=== PATIENT | male | born 1980 | race American Indian/Alaskan Native ===

== ENCOUNTER 2019-07-26 17:45 | Emergency (ER) | payer MEDICAID, OTHER, SELFPAY ==
--- NOTE | 2019-07-26 17:44 | DI.RAD.S_ITS ---
PROCEDURE: XR HAND RT MIN 3V INDICATIONS: fish hook stuck in right metacarpal TECHNIQUE: 3 views of the hand(s) acquired. COMPARISON: None. FINDINGS: Bones: Postoperative change can be seen at the base of the 5th metacarpal. No fractures or dislocations. Carpal bones are normally aligned. No suspicious bony lesions. Soft tissues: There is a large fishhook seen, with the tip not seen within a bone, yet seen within the soft tissues between the 1st and 2nd metacarpals. IMPRESSION: The tip of the fishhook can be seen external to the bones, within the soft tissues between the 1st and 2nd metacarpal. Postoperative change at the base of the 5th metacarpal. Dictated by: Raymundo Pedroza M.D. on 07/26/2019 at 17:08 Approved by: Raymundo Pedroza M.D. on 07/26/2019 at 17:10
[2019-07-26 17:45] VITALS: PULSE 100; RESP 22; TEMP 36.9; O2SAT 100
[2019-07-26] MEDS: LIDO 1%/SOD BICARB 8.4% (10ML) 10 ML SYRINGE INJ (17:54)
--- NOTE | 2019-07-26 18:08 | ED_ITS ---
HPI - Extremity Injury (Upper) <KRAIG Berrios - Last Filed: 07/26/19 19:48> General Chief Complaint: Trauma Stated Complaint: Fishing hook in hand Time Seen by Provider: 07/26/19 18:43 Source: EMS Mode of arrival: EMS Limitations: no limitations History of Present Illness HPI narrative: This is a 38-year-old male, smoker, who presents to ED with EMS after a fish hook got stuck in his dominant hand, right hand, in the palm of 1st and 2nd metacarpal region. 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 Patient reports discomfort with movement and he is holding the fishhook to prevent movement without other hand. Unsure of last tetanus immunization. Patient reports he is able to move his fingers and has good sensation around the injury site. Patient chronic medical conditions and denies diabetes. Related Data Previous Rx's Medication Instructions Recorded doxycycline hyclate 100 mg PO BID 10 Days #19 tab 07/26/19 Allergies Allergy/AdvReac Type Severity Reaction Status Date / Time No Known Drug Allergies Allergy Verified 07/26/19 17:50 Review of Systems <KRAIG Berrios - Last Filed: 07/26/19 19:48> Review of Systems Narrative: General: Denies fever, chills, fatigue, malaise, sweats. HEENT: Denies sinus pain, ear pain, sore throat, difficulty swallowing, dizziness. Respiratory: Denies dyspnea, cough, wheezing, hemoptysis, sputum. Cardiovascular: Denies chest pain, palpitations, orthopnea, edema. Gastrointestinal: Denies nausea, vomiting, abdominal pain, diarrhea, constipation, melena. : Denies dysuria, frequency, incontinence, hematuria, urinary retention. Musculoskeletal: Denies weakness, joint pain or bony pain. Skin: See HPI Neurologic: Denies weakness, headache, numbness, change in speech, confusion, seizures, incoordination. Psychiatric: No concerning psychosocial issues. 12-point review of systems is negative except for those stated above. Patient History <KRAIG Berrios - Last Filed: 07/26/19 19:48> Medical History Healthy male adult (Acute) Social History Smoking Status: Current every day smoker Smoking Status: Current every day smoker alcohol intake frequency: 0-2 drinks per day Substance Use Type: does not use Exam <KRAIG Berrios - Last Filed: 07/26/19 19:48> Narrative Exam Narrative: General appearance: well developed, well nourished, in no acute distress. Head: normocephalic, atraumatic, no scalp lesions, non-tender. ENT: Hearing grossly intact. Nose without bleeding, purulent discharge. Neck/Thyroid: neck supple, full range of motion, no visible masses or meningeal signs. No JVD, non-tender without lymphadenopathy. Skin: no suspicious rashes, lesions over visible areas. Warm and dry and appropriate color for ethnicity. Heart: no clubbing, no cyanosis, no edema. Lungs: Breathing even and unlabored. No stridor. No accessory muscles used. Able to speak in full sentences. Chest: normal shape and expansion. Abdomen: non-obese, non-distended. Neurologic: alert and oriented. Cognitive exam, CARBON PRINTER and PNS grossly intact on informal exam. Psych: good eye contact, normal affect. Initial Vital Signs Initial Vital Signs: Vital Signs Temperature 98.4 F 07/26/19 17:45 Pulse Rate 100 H 07/26/19 17:45 Respiratory Rate 22 07/26/19 17:45 Pulse Oximetry 100 07/26/19 17:45 Extrem Right upper extremity: hand Details: abnormal to inspection, neuromotor exam normal Details: wrist extension normal and thumb opposition normal, neurosensory exam normal Details: digital nerve sensory function normal, tenderness, vascular exam (skin warm to touch and pink) Details: radial pulse present and normal capillary refill, normal ROM of fingers and foreign body ([place] ) Location: of the palm (between 1st and 2nd metacarpal region) <Isaac Cheng DO - Last Filed: 07/26/19 23:37> Initial Vital Signs Initial Vital Signs: Vital Signs Temperature 98.4 F 07/26/19 17:45 Pulse Rate 100 H 07/26/19 17:45 Respiratory Rate 22 07/26/19 17:45 Pulse Oximetry 100 07/26/19 17:45 Procedures <KRAIG Berrios - Last Filed: 07/26/19 19:48> Foreign Body OTHER Site: right and hand Description of foreign body: fish hook Technique: other (ring cutter and sheet metal duct installer apprentice) Confirmed by:: direct visualization and palpation Complications: none Neurovascular: normal distal pulse, normal capillary fill, distal light touch sensation intact, distal motor function normal and no signs of compartment syndrome Laceration Repair Laceration 1: Site: hand Side (If applicable): right Size (cm): 2 Description: linear Depth: simple, single layer Local Anesthetic: lidocaine 1% and with bicarb Amount of anesthesia used (mL): 9 (pre FB removal and prior suture) Pre-repair: wound explored, irrigated extensively (after soaking in diluted betadine water) and wound margins revised Skin layer closed with: nylon Size (cm): 4-0 Number of sutures: 2 Technique: simple, interrupted (loose) Scores <KRAIG Berrios - Last Filed: 07/26/19 19:48> GCS Wheeler coma scale eye opening: Spontaneous Wheeler coma scale verbal response: Orientated Wheeler coma scale motor response: Obey commands Alfonso coma scale total score: 15 Course <KRAIG Berrios - Last Filed: 07/26/19 19:48> Orders Ordered: ED Orders 07/26/19 17:44 XR hand RT min 3V Stat Discontinued Medications Bacitracin (Bacitracin) 1 applic TOP NOW ONE Stop: 07/26/19 18:18 Last Admin: 07/26/19 18:36 Dose: 1 applic Documented by: ELIZA Diphtheria/Tetanus/Acell Pertussis (Adacel) 0.5 ml IM .ONCE ONE Stop: 07/26/19 18:18 Last Admin: 07/26/19 18:37 Dose: 0.5 ml Documented by: ELIZA Doxycycline Hyclate (Vibramycin) 100 mg PO NOW ONE Stop: 07/26/19 19:16 Last Admin: 07/26/19 19:36 Dose: 100 mg Documented by: TANYA Lidocaine/Sodium Bicarbonate (Buffered Lidocaine 10 Ml Syr) 10 ml INJ NOW ONE Stop: 07/26/19 17:45 Last Admin: 07/26/19 17:54 Dose: 10 ml Documented by: TANYA Vital Signs Vital signs: Vital Signs - 8 hr 07/26/19 17:45 07/26/19 19:34 Temperature 98.4 F Pulse Rate 100 H 84 Respiratory Rate 22 16 Blood Pressure [Left Arm] 120/75 Pulse Oximetry 100 98 <Isaac Cheng DO - Last Filed: 07/26/19 23:37> Orders Ordered: ED Orders 07/26/19 17:44 XR hand RT min 3V Stat Discontinued Medications Bacitracin (Bacitracin) 1 applic TOP NOW ONE Stop: 07/26/19 18:18 Last Admin: 07/26/19 18:36 Dose: 1 applic Documented by: ELIZA Diphtheria/Tetanus/Acell Pertussis (Adacel) 0.5 ml IM .ONCE ONE Stop: 07/26/19 18:18 Last Admin: 07/26/19 18:37 Dose: 0.5 ml Documented by: ELIZA Doxycycline Hyclate (Vibramycin) 100 mg PO NOW ONE Stop: 07/26/19 19:16 Last Admin: 07/26/19 19:36 Dose: 100 mg Documented by: TANYA Lidocaine/Sodium Bicarbonate (Buffered Lidocaine 10 Ml Syr) 10 ml INJ NOW ONE Stop: 07/26/19 17:45 Last Admin: 07/26/19 17:54 Dose: 10 ml Documented by: TANYA Vital Signs Vital signs: Vital Signs - 8 hr 07/26/19 17:45 07/26/19 19:34 Temperature 98.4 F Pulse Rate 100 H 84 Respiratory Rate 22 16 Blood Pressure [Left Arm] 120/75 Pulse Oximetry 100 98 MDM - Extremity Injury (Upper) <KRAIG Berrios - Last Filed: 07/26/19 19:48> Differential Diagnosis Differential diagnosis: Likely other (Foreign body in right palm, fracture of palm) Medical Records Attestation: I reviewed the patient's medical records. Imaging Data XR-Hand RT: Radiologist's Impression: [address] [address] XRay Report Signed Patient: Hali Ochoa#: [id number] : 1980Acct:[id number] Age/Sex: 38 / MDate of Service: 07/26/19 Loc: ED Accession Number: [id number] Procedure: XR hand RT min 3V Ordering Provider: Tino Birch PROCEDURE: XR HAND RT MIN 3V INDICATIONS: fish hook stuck in right metacarpal TECHNIQUE: 3 views of the hand(s) acquired. COMPARISON: None. FINDINGS: Bones: Postoperative change can be seen at the base of the 5th metacarpal. No fractures or dislocations. Carpal bones are normally aligned. No suspicious bony lesions. Soft tissues: There is a large fishhook seen, with the tip not seen within a bone, yet seen within the soft tissues between the 1st and 2nd metacarpals. IMPRESSION: The tip of the fishhook can be seen external to the bones, within the soft tissues between the 1st and 2nd metacarpal. Postoperative change at the base of the 5th metacarpal. Dictated by: Raymundo Pedroza M.D. on 07/26/2019 at 17:08 Approved by: Raymundo Pedroza M.D. on 07/26/2019 at 17:10 [facility] Narrative Medical decision making narrative: This is 38 year old male who presents to ED after he her large fish hook stuck in his dominant right hand in between 1st and 2nd metacarpal palm 40 minutes prior coming into ED. unsure of last tetanus immunization. X-ray test does not show dislocations or fracture. There is one vince visualized out on the palm. Tdap has been updated today. The tissue has been removed using a ring cutter and a sheet metal duct installer apprentice to completely removed. Patient soak his hand in Betadine water and irrigated well with copious p ressure. No foreign body has been palpated after the removal and patient does not report foreign body sensation. 2 cm laceration from the insertion site has been loosely repaired with 2 sutures. Patient was medicated with doxycycline prior living ED and he was discharged to home with remaining b.i.d. with 10 day course. Return precautions were discussed with the patient and patient verbalized understanding and in agreement with the treatment plan. Procedure was completed and over seen by Dr. Pierre her and his assistance and guidance. Discharge Plan Departure Patient Disposition: Home Clinical Impression: Fish hook injury of hand Qualifiers: Encounter type: initial encounter Laterality: right Qualified Code(s): S69.91XA - Unspecified injury of right wrist, hand and finger(s), initial encounter Discharge Date/Time: 07/26/19 19:41 Instructions: DI for Laceration Repair -- Simple, DI for Removal of Foreign Body From Skin Activity Restrictions/Additional Instructions: You have been diagnosed with [foreign body removal, fishhook, from right palm. Loose 2 suture [address] after fishhook was removed. Test on the hand does not show fractures or dislocation. You were medicated with doxycycline to prevent infection from this injury. You will need to take the medication twice a day for next 10 days. Doxycycline can cause a sun sensitivity so please use sunscreen when you are outdoor including working on a boat. He can upset her stomach as well.]. What to do: Please do not get your wound soaked in the water until suture removal. Keep your dressing intact for next 24 hrs. After then, you could remove your dressing, wash with soap and water. Pat dry with clean paper towel and dress it with antibiotic ointment. You can change dressing as needed and daily. Please monitor for signs and symptoms for infection such as increasing redness, swelling, warmth, pain, fever, purulent discharge. If this occurs, please return to ED or follow up with your primary care physician since your wound may be gotten infected. Please follow up with your primary care provider in 2-3 days for recheck wound. Your suture should be removed [7-10 ] days. This can be done by your primary provider, walk-in clinic or here in ED. Please keep your wound clean, dry and intact all times. You can take [id number] Tylenol and or Motrin as needed for discomfort. Tylenol 650-1000 mg at a time up to 4 times a day as needed for discomfort. Ibuprofen/Motrin 400-600 mg up to 3 times a day as needed for pain with food. As suggested you are now to be called Mr. Alarcon. Good luck with the fishing season. Prescriptions: New doxycycline hyclate 100 mg tablet 100 mg PO BID 10 Days Qty: 19 RF: 0 <Isaac Cheng, DO - Last Filed: 07/26/19 23:37> Sign Out Provider Sign Out Attestation: Dr Cheng Co-Sign Statement: I was available for consultation during this patient's emergency department visit. This chart is signed by myself for administrative purposes only. I did not have direct contact with this patient during this visit. They were seen independently by the APC.
[2019-07-26] MEDS: BACITRACIN OINT 0.9 GM PCKT 1 APPLIC TOP (18:36)
[2019-07-26] MEDS: TET,DIPH,PERTUSS(ACELL),VAC/PF 0.5 ML SYRINGE IM (18:37)
[2019-07-26 19:34] VITALS: BP 120/75; PULSE 84; RESP 16; O2SAT 98
[2019-07-26] MEDS: DOXYCYCLINE HYCLATE 100 MG TABLET PO (19:36)
== END 2019-07-26 19:41 | disposition home or self-care (01) ==
PROVIDERS: Emergency Provider Nurse Practitioner Family
DX: S61.421A Laceration with foreign body of right hand, initial encounter (principal); X58.XXXA Exposure to other specified factors, initial encounter; Z23 Encounter for immunization
CPT/HCPCS: 12001; 73130; 90471; 99283; 99284; 90715

== ENCOUNTER 2020-05-07 17:05 | Emergency (ER) | payer OTHER, SELFPAY ==
[2020-05-07 17:16] VITALS: BP 121/75; PULSE 99; RESP 16; TEMP 36.4; O2SAT 97; BMI 24.4
--- NOTE | 2020-05-07 17:20 | DI.RAD.S_ITS ---
PROCEDURE: XR SHOULDER RT MIN 2V INDICATIONS: slipped on ice pain to R shoulder TECHNIQUE: 4 views of the shoulder were acquired. COMPARISON: None. FINDINGS: Bones: There is a right mid to distal clavicle fracture, with moderate displacement and overlapping of fracture fragments of approximately 4 cm. Mild comminution is seen. No additional fractures are seen. No shoulder dislocation. The visualized ribs appear intact. No suspicious lytic or blastic lesions are seen. Soft tissues: No suspicious soft tissue calcifications. The visualized lung demonstrates an unremarkable appearance. IMPRESSION: Right clavicle fracture. Dictated by: Raymundo Pedroza M.D. on 05/07/2020 at 17:08 Approved by: Raymundo Pedroza M.D. on 05/07/2020 at 17:09
[2020-05-07 19:00] VITALS: BP 131/79; PULSE 105; RESP 18; O2SAT 99
--- NOTE | 2020-05-07 19:21 | ED.UPPEXIN ---
HPI - Extremity Injury (Upper) General Chief Complaint: Extremity Injury, Upper Stated Complaint: Right Shoulder Jacked Up, Slipped On Ice Time Seen by Provider: 05/07/20 19:17 Source: patient Mode of arrival: Ambulatory Limitations: no limitations History of Present Illness HPI narrative: Patient is a 39-year-old male who presents with right shoulder pain. He says he slipped and fell on ice 2 days ago. He denies any other injury. He has had increasing pain since then. He was out of town and waited till he got back home to be evaluated. He denies numbness or tingling. It is feeling better after he has been provided a sling. He denies any other injury. MD complaint: injury to: right and shoulder Onset (ago): day(s) Related Data Previous Rx's Medication Instructions Recorded hydrocodone-acetaminophen 1 tab PO Q6H PRN #10 tab 05/07/20 Allergies Allergy/AdvReac Type Severity Reaction Status Date / Time No Known Drug Allergies Allergy Verified 07/27/19 08:10 Review of Systems Review of Systems Narrative: GENERAL: Denies chills,fever HEENT: Denies throat pain RESPIRATORY: Denies dyspnea, cough, wheezing CARDIOVASCULAR: Denies chest pain, palpitations GASTROINTESTINAL: Denies nausea, vomiting MUSCULOSKELETAL: See HPI SKIN: No rash, no laceration, no pruritus NEUROLOGIC: Denies weakness, dizziness, headache, numbness 8 point review of systems is negative except for those stated above and HPI Patient History Medical History Healthy male adult Social History Smoking Status: Current every day smoker Smoking Status: Current every day smoker tobacco type: cigarettes alcohol intake frequency: a few times a week Substance Use Type: does not use Exam Initial Vital Signs Initial Vital Signs: Vital Signs Temperature 97.5 F L 05/07/20 17:16 Pulse Rate 99 H 05/07/20 17:16 Respiratory Rate 16 05/07/20 17:16 Blood Pressure 121/75 05/07/20 17:16 Pulse Oximetry 97 05/07/20 17:16 GENERAL: Well-appearing, well-nourished and in no acute distress. CARDIOVASCULAR: peripheral pulses in tact, cap refill <2 sec RESPIRATORY: No respiratory distress, speaks in full sentences without difficulty EXTREMITIES: Normal range of motion, no clubbing or edema. Neurovascularly intact Right upper extremity clavicle step-off no skin tenting sensation in deltoid intact good strong distal radial pulse able to move fingers. NEUROLOGICAL: Cranial nerves II through XII grossly intact. Normal gait and speech. SKIN: Warm, dry, no petechiae, no rashes or lesions. Course Orders Ordered: ED Orders 05/07/20 17:20 XR shoulder RT min 2V Stat Discontinued Medications Hydrocodone Bitart/Acetaminophen (Hydrocodone/Acet 5/325 Prepack) 1 bottle MISC SEEINSTR ONE Stop: 05/07/20 19:27 Vital Signs Vital signs: Vital Signs - 8 hr 05/07/20 17:16 05/07/20 19:00 Temperature 97.5 F L Pulse Rate 99 H 105 H Respiratory Rate 16 18 Blood Pressure 121/75 131/79 Pulse Oximetry 97 99 MDM - Extremity Injury (Upper) Imaging Data Extremity x-ray #1: Radiologist's Impression: PROCEDURE: XR SHOULDER RT MIN 2V INDICATIONS: slipped on ice pain to R shoulder TECHNIQUE: 4 views of the shoulder were acquired. COMPARISON: None. FINDINGS: Bones: There is a right mid to distal clavicle fracture, with moderate displacement and overlapping of fracture fragments of approximately 4 cm. Mild comminution is seen. No additional fractures are seen. No shoulder dislocation. The visualized ribs appear intact. No suspicious lytic or blastic lesions are seen. Soft tissues: No suspicious soft tissue calcifications. The visualized lung demonstrates an unremarkable appearance. IMPRESSION: Right clavicle fracture. Dictated by: Raymundo Pedroza M.D. on 05/07/2020 at 17:08 Discharge Plan Departure Patient Disposition: Home Clinical Impression: Closed fracture of right clavicle Qualifiers: Encounter type: initial encounter Clavicle location: shaft Fracture alignment: displaced Qualified Code(s): S42.021A - Displaced fracture of shaft of right clavicle, initial encounter for closed fracture Instructions: DI for Clavicle Fracture-Adult Activity Restrictions/Additional Instructions: *You have been diagnosed with right clavicle fracture *What to do: Keep arm in sling at all times. He will need to follow-up with orthopedics. It is possible that this may require surgery *Continue to take medications as directed [place] 1 tablet every 6 hours only if needed for severe pain, recommend taking at night to help sleep in using Tylenol in the daytime *Follow up with your primary care provider in 2-3 days *Return to ER if you should have increasing pain weakness numbness or tingling or any new, worsening or concerning symptoms Prescriptions: New hydrocodone-acetaminophen 5-325 mg tablet 1 tab PO Q6H PRN (Reason: pain) Qty: 10 RF: 0 Referrals: [facility] [Provider Group] [facility] [Outside]
[2020-05-07] MEDS: HYDROCODONE/ACET 5/325 PREPACK 1 BOTTLE MISC (19:47)
[2020-05-07 19:50] VITALS: BP 126/75; PULSE 108; RESP 16; O2SAT 99
== END 2020-05-07 19:50 | disposition home or self-care (01) ==
PROVIDERS: Emergency Provider Emergency Medicine
DX: S42.021A Displaced fracture of shaft of right clavicle, initial encounter for closed fracture (principal); W00.0XXA Fall on same level due to ice and snow, initial encounter
CPT/HCPCS: 73030; 99281; 99283

== ENCOUNTER 2020-10-21 23:45 | Emergency (ER) | payer MEDICAID, OTHER, SELFPAY ==
[2020-10-21 23:57] VITALS: BP 133/79; PULSE 107; RESP 22; TEMP 37.7; O2SAT 97; BMI 24.4
--- NOTE | 2020-10-22 00:11 | ED.GENADULT ---
HPI - General Adult General Chief complaint: Upper Respiratory Symptoms Stated complaint: throat swelling, labored breathing Time Seen by Provider: 10/22/20 00:01 Source: patient Mode of arrival: Ambulatory Limitations: no limitations History of Present Illness HPI narrative: 40-year-old male here for evaluation of approximately 24 hours of a sore throat, no cough, subjective fevers, problems swallowing and breathing. No rashes. Has tried some Chloraseptic spray without improvement. Related Data Previous Rx's Medication Instructions Recorded hydrocodone-acetaminophen 1 tab PO Q6H PRN #10 tab 05/07/20 Allergies Allergy/AdvReac Type Severity Reaction Status Date / Time No Known Drug Allergies Allergy Verified 07/27/19 08:10 Review of Systems Constitutional Constitutional: Reports system reviewed and no additional complaints, except as documented ENT Ears, Nose, Mouth, and Throat: Reports sore throat, Reports throat swelling and Denies tongue swelling Respiratory Comments: Some difficulty breathing Gastrointestinal Comments: Painful swallowing Integumentary/Breasts Skin/Breast: Denies rash Hematologic/Lymphatic On Anticoagulants: No Allergic/Immunologic Allergic/Immunologic: Reports throat swelling and Denies tongue swelling Patient History Medical History Healthy male adult Social History Smoking Status: Current every day smoker Smoking Status: Current every day smoker tobacco type: cigarettes alcohol intake frequency: a few times a week Substance Use Type: does not use Exam Initial Vital Signs Initial Vital Signs: Vital Signs Temperature 99.8 F H 10/21/20 23:57 Pulse Rate 107 H 10/21/20 23:57 Respiratory Rate 22 10/21/20 23:57 Blood Pressure 133/79 10/21/20 23:57 Pulse Oximetry 97 10/21/20 23:57 Const General: cooperative and comfortable Limitations: mental status not altered HENMT Head: normal to inspection and normocephalic Nose: external nose normal Mouth: oral mucosae normal Throat: abnormal tonsil and no uvular edema Neck Lymphatic: lymphadenopathy Resp Effort & Inspection: normal respiratory effort Cardio Rate: tachycardic Skin Lesions: no lesions Rashes: no rashes Extrem General: normal to inspection and capillary refill normal Psych Appearance: grossly normal and well kempt Course Orders Ordered: Discontinued Medications Dexamethasone (Dexamethasone 10 Mg/Ml Vial) 10 mg PO NOW ONE Stop: 10/22/20 00:13 Last Admin: 10/22/20 00:16 Dose: 10 mg Documented by: SINCERE Penicillin G Benzathine (Penicillin G Benzathine 1,200,000 Unit/2 Ml Syringe) 1,200,000 unit IM NOW ONE Stop: 10/22/20 00:13 Last Admin: 10/22/20 00:16 Dose: 1,200,000 unit Documented by: SINCERE Vital Signs Vital signs: Vital Signs - 8 hr 10/21/20 23:57 10/22/20 00:23 Temperature 99.8 F H Pulse Rate 107 H 100 H Respiratory Rate 22 16 Blood Pressure 133/79 126/80 Pulse Oximetry 97 97 Medical Decision Making Lab Data Labs: Point of Care Testing Rapid Strep A Positive Point of care testing: Point of Care Testing Rapid Strep A Positive MDM Narrative Medical decision making narrative: Patient's rapid strep is positive that his physical exam is consistent with this. He is not in any respiratory distress. Was given a dose of steroids to try to help with the swelling. Offered him oral pain medication or an IM injection and he opted for the IM injection. Will discharge home with strict return precautions he expressed understanding and agreement. Discharge Plan Departure Patient Disposition: Home Clinical Impression: Acute streptococcal pharyngitis Instructions: DI for Strep Throat Activity Restrictions/Additional Instructions: You can take Tylenol for any fevers. Increase your fluid intake by drinking small amounts of fluid over longer periods of time. Return to the emergency department for any new or worsening symptoms Prescriptions: No Action hydrocodone-acetaminophen 5-325 mg tablet 1 tab PO Q6H PRN (Reason: pain) Qty: 10 RF: 0
[2020-10-22] MEDS: PENICILLIN G BENZATHINE 1,200,000 UNIT/2 ML SYRINGE 1200000 UNIT IM (00:16)
[2020-10-22] MEDS: DEXAMETHASONE 10 MG/ML VIAL PO (00:16)
[2020-10-22 00:23] VITALS: BP 126/80; PULSE 100; RESP 16; O2SAT 97
== END 2020-10-22 00:24 | disposition home or self-care (01) ==
PROVIDERS: Emergency Provider Emergency Medicine
DX: J02.0 Streptococcal pharyngitis (principal)
CPT/HCPCS: 87880; 96372; 99283; J0561; J1100

== ENCOUNTER 2021-11-30 23:39 | Emergency (ER) | payer MEDICAID, OTHER, SELFPAY ==
[2021-11-30 23:51] VITALS: BP 140/88; PULSE 105; RESP 18; TEMP 36.8; O2SAT 92; BMI 24.0
--- NOTE | 2021-11-30 23:58 | ED.GENADULT ---
HPI - General Adult General Chief complaint: Upper Respiratory Symptoms Stated complaint: sore throat/hard to breath x2 days Time Seen by Provider: 11/30/21 23:41 Source: patient and family Mode of arrival: Ambulatory History of Present Illness HPI narrative: 41-year-old male daily smoker without significant medical history presents with significant other and a chief complaint of fever and chills along with sore throat and difficulty swallowing for the past few days. He is had strep throat past and states this feels similar. He does have some difficulty breathing but states it is because he feels like his throat is swollen. He is had no nausea or vomiting. He denies any chest pain. He denies recent travel or exposure to other obviously ill people Related Data Previous Rx's Medication Instructions Recorded hydrocodone 5 mg-acetaminophen 325 1 tab PO Q6H PRN pain #10 tabs 05/07/ mg tablet amoxicillin 875 mg-potassium 1 tab PO Q12H #20 tabs 12/01/21 clavulanate 125 mg tablet ketorolac 10 mg tablet 10 mg PO Q6H PRN pain #14 tabs 12/01/21 Allergies Allergy/AdvReac Type Severity Reaction Status Date / Time No Known Drug Allergies Allergy Verified 07/27/19 08:10 Review of Systems Review of Systems Narrative: GENERAL: See HPI. HEENT: See HPI RESPIRATORY: see HPI CARDIOVASCULAR: Denies chest pain, palpitations, orthopnea, edema, GASTROINTESTINAL: Denies nausea, vomiting, abdominal pain, diarrhea, constipation, melena. : Denies dysuria, frequency, incontinence, hematuria, urinary retention. MUSCULOSKELETAL: denies weakness, joint pain, or bony pain SKIN: Denies rash, skin lesions, or other NEUROLOGIC: Denies weakness, headache, numbness, change in speech, confusion, seizures, incoordination. PSYCHIATRIC: No concerning psychosocial issues. 12 point review of systems is negative except for those stated above Patient History Medical History Healthy male adult Social History Smoking Status: Current every day smoker Smoking Status: Current every day smoker tobacco type: cigarettes alcohol intake frequency: a few times a week Substance Use Type: marijuana Exam Narrative Exam Narrative: GENERAL: [41] year old patient appears stated age. Well-developed patient, in mild distress. HEAD: Atraumatic. Normocephalic. EYES: Pupils equal round and reactive. Extraocular motions intact. No scleral icterus. No injection or drainage. ENT: Nose without bleeding, purulent drainage. Tonsillar swelling and erythema with mass effect adjacent to R tonsil deviating the uvula, consistent with [employer]. Airway patent, contolling secretions NECK: Trachea midline. tender anterior lymphadenopathy CARDIOVASCULAR: Regular rate and rhythm without murmurs, gallops, or rubs. RESPIRATORY: Clear to auscultation. Breath sounds equal bilaterally. No wheezes, rales, or rhonchi. GASTROINTESTINAL: Abdomen soft, non-tender, nondistended. EXTREMITIES: No edema or joint tenderness. BACK: Nontender without deformity or crepitance. No flank tenderness. NEURO: AOx3. SKIN: No rash or erythema of visible areas Initial Vital Signs Initial Vital Signs: Vital Signs Temperature 98.2 F 11/30/21 23:51 Pulse Rate 105 H 11/30/21 23:51 Respiratory Rate 18 11/30/21 23:51 Blood Pressure 140/88 11/30/21 23:51 Pulse Oximetry 92 11/30/21 23:51 Oxygen Delivery Method 11/30/21 23:51 Procedures Abscess I/D I&D #1: Site: other (R [employer]) Side (if applicable): right Local Anesthetic: lidocaine 1% (and cetacaine) Amount of anesthesia used (mL): 4 Technique: needle aspiration Amount of fluid expressed (mL): 7 Packing used?: none Course Orders Ordered: ED Orders 12/01/21 01:38 CT soft tissue neck w con Stat Discontinued Medications Benzocaine/Butamben/Tetracaine HCl (Tetracaine/Benzocaine/Butamben (Cetacaine) Bottle) 1 spray TOP NOW ONE Stop: 12/01/21 01:10 Last Admin: 12/01/21 01:19 Dose: 1 spray Documented By: NR Dexamethasone (Dexamethasone 10 Mg/Ml Vial) 10 mg IV NOW ONE Stop: 12/01/21 00:00 Last Admin: 12/01/21 00:07 Dose: 10 mg Documented By: NR Sodium Chloride (Normal Saline 0.9%) 1,000 mls @ 1,000 mls/hr IV BOLUS ONE Stop: 12/01/21 00:58 Last Infusion: 12/01/21 02:51 Dose: 0 mls/hr Documented By: Admin: 12/01/21 00:08 Dose: 1,000 mls/hr Documented By: NR Ampicillin Sodium/Sulbactam (Sodium 3 gm/ Sodium Chloride) 100 mls @ 100 mls/hr IV NOW ONE Stop: 12/01/21 00:00 Last Infusion: 12/01/21 01:21 Dose: 0 mls/hr Documented By: Admin: 12/01/21 00:07 Dose: 100 mls/hr Documented By: NR Ketorolac Tromethamine (Ketorolac 30 Mg/Ml Vial) 15 mg IV NOW ONE Stop: 12/01/21 00:00 Last Admin: 12/01/21 00:07 Dose: 15 mg Documented By: NR Lidocaine HCl (Lidocaine 2% Inj Mdv) 20 ml INJ INTRA-OP ONE Stop: 12/01/21 00:00 Last Admin: 12/01/21 00:08 Dose: 20 ml Documented By: NR Ondansetron HCl (Ondansetron 4 Mg/2 Ml Inj) 4 mg IV NOW ONE Stop: 12/01/21 01:28 Last Admin: 12/01/21 01:33 Dose: 4 mg Documented By: NR Reevaluation(s) Reevaluation #1: Patient with significant improvement after medications and needle aspiration. No difficulty breathing, controlling secretions without difficulty, ambulating through the department and tolerating orals. He does mention that his girlfriend is having a family emergency and he needs to leave before the results of the CT scan are here. I have confirmed his contact information, he understands that I will contact him with any significant findings. Vital Signs Vital signs: Vital Signs - 8 hr 11/30/21 23:51 12/01/21 03:39 Temperature 98.2 F Pulse Rate 105 H 88 Respiratory Rate 18 18 Blood Pressure 140/88 140/80 Pulse Oximetry 92 100 Oxygen Delivery Method Room Air Room Air Medical Decision Making Lab Data Labs: Point of Care Testing Rapid Strep A Positive Point of care testing: Point of Care Testing Rapid Strep A Positive Imaging Data CT Soft Tissue Neck: Radiologist's Impression: Abnormal tonsillar enlargement contributing to marked narrowing of the nasopharyngeal and oropharyngeal airways. Findings suggest pharyngitis and tonsillitis Discharge Plan Departure Patient Disposition: Home Clinical Impression: Abscess, peritonsillar Instructions: DI for Peritonsillar Abscess -- Adult Activity Restrictions/Additional Instructions: *You have been diagnosed with [right-sided peritonsillar abscess] *What to do: *Please continue to take your regular medications as directed. [x ] New medication prescriptions sent to your pharmacy: [ [facility]] [ ] New medication written as a paper prescription [ ] No new medications given *Please follow up with your primary care provider in 2-3 days, call for an appointment. Let them know you were seen in the Emergency Department and that we ask that you be seen in follow up. We will electronically transmit a record of today's note if your PCP is in our system * another option for follow-up would be with the local ear nose and throat doctors at [facility]. Their contact is below, please call the office and let them know that you were seen in the emergency department and we would like you seen in follow-up *If you do not have a primary care provider please contact the [facility] Resource line at [phone]. They will ask some questions about your medical history and help get you set up with a doctor in the community. *Return to Emergency Department if you should have any new, worsening or concerning symptoms, such as [fever greater than 101 F, shaking chills, worsening pain, persistent vomiting or other bothersome symptoms] Prescriptions: New ketorolac 10 mg tablet 10 mg PO Q6H PRN (Reason: pain) Qty: 14 0RF amoxicillin-pot clavulanate 875-125 mg tablet 1 tab PO Q12H Qty: 20 0RF No Action hydrocodone-acetaminophen 5-325 mg tablet 1 tab PO Q6H PRN (Reason: pain) Qty: 10 0RF Visit Report Forms: Patient Portal/API
[2021-12-01] MEDS: KETOROLAC 30 MG/ML VIAL 15 MG IV (00:07)
[2021-12-01] MEDS: DEXAMETHASONE 10 MG/ML VIAL IV (00:07)
[2021-12-01] MEDS: AMPICILLIN/SULBACTAM 3 GM 3 GM in SODIUM CHLORIDE 0.9% 100 ML IV (00:07)
[2021-12-01] MEDS: LIDOCAINE 2% INJ MDV 20 ML INJ (00:08)
[2021-12-01] MEDS: SODIUM CHLORIDE 0.9% 1,000 ML 1000 ML IV (00:08)
[2021-12-01] MEDS: TETRACAINE/BENZOCAINE/BUTAMBEN (CETACAINE) BOTTLE 1 SPRAY TOP (01:19)
[2021-12-01] MEDS: ONDANSETRON 4 MG/2 ML INJ IV (01:33)
--- NOTE | 2021-12-01 01:38 | DI.CT.S_ITS ---
PROCEDURE: CT SOFT TISSUE NECK W CON INDICATIONS: pain, swelling, can't swallow, control secretions R>L TECHNIQUE: After the administration of intravenous contrast, 3.0 mm axial sections acquired from the sella to the aortic arch. Additional oblique axial 3.0 mm sections acquired through the pharynx. 3 mm thick coronal and sagittal reformats were generated. For radiation dose reduction, the following was used: automated exposure control. COMPARISON: None. FINDINGS: Image quality: Excellent. NASOPHARYNX/OROPHARYNX: There is mass effect centered on the right peritonsillar region with a vague region of diminished density deep to the right palatine tonsil that measures approximately 2.1 x 1.0 cm transversely by 1.6 cm craniocaudal. There is right parapharyngeal edema. There is mass effect upon the base of the in the oropharynx on the right. The epiglottis is displaced to the left. The right vallecula and piriform sinuses are crowded by edema. LARYNX: The true and false vocal cords are normal with no mucosal irregularity or mass. SINUSES: The sinuses are well aerated with no mucosal thickening or fluid. LYMPH NODES: Diffuse cervical adenopathy, worse on the right. SKULL BASE: Foramina are symmetric without bony erosion. SALIVARY GLANDS: The parotid glands and submandibular glands are normal. THYROID: The thyroid gland is symmetric with no nodules. VASCULAR: The carotid arteries are patent with no significant atherosclerotic disease. SOFT TISSUES: Superficial soft tissues of the face and neck are normal with no skin thickening, masses, or fluid collections. ORBITS: The globes and retrobulbar soft tissues are normal. LUNGS: Visualized lung apices are normal. BONES: Normal visualized bones. IMPRESSION: Abnormal tonsillar enlargement contributing to market narrowing of the nasopharynx in or pharyngeal airways. A region of diminished attenuation deep to the right palatine tonsil measures 2.1 x 1.0 x 1.6 cm. Disc could represent a developing peritonsillar abscess. There is associated cervical lymphadenopathy. Comment: Final report is concordant with preliminary interpretation by [facility] Dictated by: Mayco Leung M.D. on 12/01/2021 at 7:08 Approved by: Mayco Leung M.D. on 12/01/2021 at 7:14
[2021-12-01 03:39] VITALS: BP 140/80; PULSE 88; RESP 18; O2SAT 100
== END 2021-12-01 03:39 | disposition home or self-care (01) ==
PROVIDERS: Emergency Provider Emergency Medicine
DX: J36 Peritonsillar abscess (principal)
CPT/HCPCS: 10060; 70491; 87880; 96365; 96375; 99284; J0295; J1100; J1885; J2405; Q9967

== ENCOUNTER 2022-04-09 20:13 | Emergency (ER) | payer MEDICAID, OTHER, SELFPAY ==
[2022-04-09 20:20] VITALS: BP 140/85; PULSE 100; RESP 16; TEMP 36.8; O2SAT 98
--- NOTE | 2022-04-09 21:19 | ED_ITS ---
HPI - Headache General Chief Complaint: Headache Stated Complaint: Vomiting, Headache Time Seen by Provider: 04/09/22 21:01 Mode of arrival: Wheelchair History of Present Illness HPI Narrative: 41-year-old male smoker with noncontributory medical history presents with family in the chief complaint of widespread symptoms including mild headache, sore throat, dry and hacking cough, subjective fever and body aches. He is had nausea but denies vomiting, abdominal pain or diarrhea. He has been sick for 24 hours or less and is here with another family member with similar symptoms. He denies any significant shortness of breath. Related Data Previous Rx's Medication Instructions Recorded hydrocodone 5 mg-acetaminophen 325 1 tab PO Q6H PRN pain #10 tabs 05/07/20 mg tablet amoxicillin 875 mg-potassium 1 tab PO Q12H #20 tabs 12/01/21 clavulanate 125 mg tablet ketorolac 10 mg tablet 10 mg PO Q6H PRN pain #14 tabs 12/01/21 ondansetron 4 mg disintegrating 4 mg PO TID-QID PRN nausea and 04/09/22 tablet vomiting #10 tabs oseltamivir 75 mg capsule (Tamiflu) 75 mg PO BID 5 days #10 caps 04/09/22 Allergies Allergy/AdvReac Type Severity Reaction Status Date / Time No Known Drug Allergies Allergy Verified 07/27/19 08:10 Review of Systems Review of Systems Narrative: GENERAL: See HPI HEENT: See HPI RESPIRATORY: See HPI CARDIOVASCULAR: Denies chest pain, palpitations, orthopnea, edema, GASTROINTESTINAL: See HPI : Denies dysuria, frequency, incontinence, hematuria, urinary retention. MUSCULOSKELETAL: denies weakness, joint pain, or bony pain SKIN: Denies rash, skin lesions, or other NEUROLOGIC: Denies weakness, headache, numbness, change in speech, confusion, seizures, incoordination. PSYCHIATRIC: No concerning psychosocial issues. 12 point review of systems is negative except for those stated above Patient History Medical History Healthy male adult Social History Smoking Status: Current every day smoker Smoking Status: Current every day smoker tobacco type: cigarettes alcohol intake frequency: a few times a week Substance Use Type: marijuana Exam Narrative Exam Narrative: GENERAL: [41] year old patient appears stated age. Well-developed patient, in mild distress. HEAD: Atraumatic. Normocephalic. EYES: Pupils equal round and reactive. Extraocular motions intact. No scleral icterus. No injection or drainage. ENT: Moist mucous membranes Nose without bleeding, purulent drainage. Throat without erythema, tonsillar hypertrophy or exudate. Airway patent. NECK: Trachea midline. Non tender CARDIOVASCULAR: Regular rate and rhythm without murmurs, gallops, or rubs. RESPIRATORY: Clear to auscultation. Breath sounds equal bilaterally. No wheezes, rales, or rhonchi. No significant work of breathing, use of accessory muscles or hypoxemia GASTROINTESTINAL: Abdomen soft, non-tender, nondistended. EXTREMITIES: No edema or joint tenderness. BACK: Nontender without deformity or crepitance. No flank tenderness. NEURO: AOx3. SKIN: No rash or erythema of visible areas Initial Vital Signs Initial Vital Signs: Vital Signs Temperature 98.3 F 04/09/22 20:20 Pulse Rate 100 H 04/09/22 20:20 Respiratory Rate 16 04/09/22 20:20 Blood Pressure 140/85 04/09/22 20:20 Pulse Oximetry 98 04/09/22 20:20 Oxygen Delivery Method 04/09/22 20:20 Course Orders Ordered: ED Orders 04/09/22 20:30 Covid-19 + FLU A/B + RSV - PCR Stat 04/09/22 21:45 UA Complete [Urinalysis and Microscopic] Stat Discontinued Medications Ketorolac Tromethamine (Ketorolac 30 Mg/Ml Vial) 30 mg IM NOW ONE Stop: 04/09/22 21:54 Last Admin: 04/09/22 22:03 Dose: 30 mg Documented By: LIZ Ondansetron HCl (Ondansetron 4 Mg Odt Prepack) 1 bottle MISC SEEINSTR ONE Stop: 04/09/22 21:54 Last Admin: 04/09/22 22:03 Dose: 1 bottle Documented By: LIZ Vital Signs Vital signs: Vital Signs - 8 hr 04/09/22 20:20 04/09/22 21:55 04/09/22 22:41 Temperature 98.3 F Pulse Rate 100 H 97 H 88 Respiratory Rate 16 Blood Pressure 140/85 125/64 134/75 Pulse Oximetry 98 98 99 Oxygen Delivery Method Room Air Room Air Room Air MDM - Headache Lab Data Labs: Lab Results 04/09/22 04/09/22 Range/Units 20:30 21:45 Urine Color Yellow Urine Appearance Clear Urine pH 7.5 (4.5-8.0) Ur Specific Beaman 1.020 (1.000-1.035) Urine Protein Trace H (Negative) Urine Glucose (UA) Negative (Negative) g/dL Urine Ketones 2+ H (NEGATIVE) Urine Occult Blood 2+ H (Negative) Urine Nitrate Negative (Negative) Urine Bilirubin Negative (NEGATIVE) Urine Urobilinogen 0.2 (0.2) E.U./dL Ur Leukocyte Esterase Negative (NEGATIVE) Urine RBC 1-5/hpf (0-5/HPF) Urine WBC None seen (0-5/HPF) Ur Squamous Epith Cells 1-5 /hpf (0-5/HPF) Amorphous Sediment 3+ Urine Bacteria Occasional (0-1) (None) Ur Culture Indicated? Cult not indicated SARS-CoV-2 (PCR) Negative (Negative) Influenza A (RT-PCR) Flu a positive H (NEGATIVE) Influenza B (RT-PCR) Flu b negative (NEGATIVE) RSV (PCR) Negative (Negative) Urine Dip Bedside Urine Glucose Negative Bedside Urine Bilirubin - Negative Bedside Urine Ketone +++ 80 Urine Specific Beaman 1.015 Bedside Urine Occult Blood +++ Bedside Urine pH 7.5 Bedside Urine Protein - Negative Bedside Urine Urobilinogen - Negative Bedside Urine Nitrite - Negative Bedside Urine Leukocytes - Negative Esterase MDM Narrative Medical decision making narrative: Patient with reassuring history and physical exam. No evidence of increased work of breathing, no hypoxemia, patient well hydrated with moist mucous membranes and tolerating orals. Flu swab is positive. No indication for increased workup, patient appropriate for discharge Discharge Plan Departure Patient Disposition: Home Clinical Impression: Flu Instructions: DI for Influenza -- Adult Activity Restrictions/Additional Instructions: *You have been diagnosed with [influenza a] *What to do: *Please continue to take your regular medications as directed. [ x] New medication prescriptions sent to your pharmacy: [ ] [ ] New medication written as a paper prescription [ ] No new medications given *Please follow up with your primary care provider in 2-3 days, call for an appointment. Let them know you were seen in the Emergency Department and that we ask that you be seen in follow up. We will electronically transmit a record of today's note if your PCP is in our system *If you do not have a primary care provider please contact the [facility] Resource line at [phone]. They will ask some questions about your medical history and help get you set up with a doctor in the community. *Return to Emergency Department if you should have any new, worsening or concerning symptoms, such as [fever greater than 101 F, shaking chills, worsening pain, persistent vomiting or other bothersome symptoms] Prescriptions: New oseltamivir [Tamiflu] 75 mg capsule 75 mg PO BID 5 Days Qty: 10 0RF ondansetron 4 mg tablet,disintegrating 4 mg PO TID-QID PRN (Reason: nausea and vomiting) Qty: 10 0RF No Action hydrocodone-acetaminophen 5-325 mg tablet 1 tab PO Q6H PRN (Reason: pain) Qty: 10 0RF ketorolac 10 mg tablet 10 mg PO Q6H PRN (Reason: pain) Qty: 14 0RF amoxicillin-pot clavulanate 875-125 mg tablet 1 tab PO Q12H Qty: 20 0RF Visit Report Forms: Patient Portal/API
[2022-04-09 21:37] LABS: Influenza A - CEPHEID Flu A POSITIVE (NEGATIVE); Influenza B - CEPHEID Flu B NEGATIVE (NEGATIVE); Respiratory Syncytial Virus Negative (Negative)
[2022-04-09 21:40] LABS: COVID-19 CEPHEID 4-PLEX PCR Negative (Negative)
[2022-04-09 21:55] VITALS: BP 125/64; PULSE 97; O2SAT 98
[2022-04-09 22:02] LABS: Appearance Urine UA CLEAR; Bilirubin Urine UA NEGATIVE (NEGATIVE); Color Urine UA YELLOW; Glucose Urine UA NEGATIVE (Negative); Ketones Urine UA 2+ (NEGATIVE); Leukocyte Esterase Urine UA NEGATIVE (NEGATIVE); Nitrite Urine UA NEGATIVE (Negative); Occult Blood Urine UA 2+ (Negative); Protein Urine UA TRACE (Negative); Urobilinogen Urine UA 0.2 E.U./dL (0.2); pH Urine UA 7.5 (4.5-8.0)
[2022-04-09] MEDS: KETOROLAC 30 MG/ML VIAL IM (22:03)
[2022-04-09] MEDS: ONDANSETRON 4 MG ODT PREPACK 1 BOTTLE MISC (22:03)
[2022-04-09 22:12] LABS: Amorphous Sediment Urine 3+; Bacteria Urine Occasional (0-1); Culture Indicated Urine Cult Not Indicated; RBC Urine 1-5/HPF (0-5/HPF); Squamous Epithelial Cell Urine 1-5 /HPF (0-5/HPF); WBC Urine None Seen (0-5/HPF)
[2022-04-09 22:41] VITALS: BP 134/75; PULSE 88; O2SAT 99
== END 2022-04-09 22:49 | disposition home or self-care (01) ==
PROVIDERS: Emergency Provider Emergency Medicine
DX: J10.1 Influenza due to other identified influenza virus with other respiratory manifestations (principal); Z20.822 Contact with and (suspected) exposure to COVID-19
CPT/HCPCS: 0241U; 81001; 81003; 96372; 99283; J1885

== ENCOUNTER 2024-04-08 23:08 | Emergency (ER) | payer OTHER, SELFPAY ==
[2024-04-08 23:12] VITALS: BP 128/89; PULSE 120; O2SAT 98
[2024-04-08 23:16] VITALS: BP 128/89; PULSE 107; RESP 18; TEMP 38.2; O2SAT 98; BMI 24.4
[2024-04-08 23:30] VITALS: BP 138/85; PULSE 111; RESP 18; O2SAT 95
[2024-04-08 23:33] LABS: Strep Grp A by PCR Rapid Positive (Negative)
[2024-04-09] VITALS: BP 139/77; PULSE 121; O2SAT 98
[2024-04-09 00:17] LABS: Influenza A - CEPHEID Flu A NEGATIVE (NEGATIVE); Influenza B - CEPHEID Flu B NEGATIVE (NEGATIVE); Respiratory Syncytial Virus Negative (Negative)
[2024-04-09 00:18] LABS: COVID-19 CEPHEID 4-PLEX PCR Negative (Negative)
--- NOTE | 2024-04-09 00:26 | ED.GENADULT ---
HPI - General Adult General Chief complaint: Upper Respiratory Symptoms Stated complaint: chills, ear ache sore throat Time Seen by Provider: 04/08/24 23:15 Source: patient Mode of arrival: Ambulatory History of Present Illness HPI narrative: Patient is a 43-year-old male who is here for evaluation chills, fevers, sore throat, right-sided earache. Symptoms have been present for the past 3 days. He was had strep throat in the past. Has had a peritonsillar abscess that is required drainage. He Has pain with swallowing. No vomiting. has been trying some Cepacol drops without much improvement of symptoms. Related Data Previous Rx's Medication Instructions Recorded hydrocodone 5 mg-acetaminophen 325 1 tab PO Q6H PRN pain #10 tabs 05/07/ mg tablet amoxicillin 875 mg-potassium 1 tab PO Q12H #20 tabs 12/01/21 clavulanate 125 mg tablet ketorolac 10 mg tablet 10 mg PO Q6H PRN pain #14 tabs 12/01/21 ondansetron 4 mg disintegrating 4 mg PO TID-QID PRN nausea and 04/09/22 tablet vomiting #10 tabs Allergies Allergy/AdvReac Type Severity Reaction Status Date / Time No Known Drug Allergies Allergy Verified 07/27/19 08:10 Review of Systems Review of Systems Narrative: See HPI Patient History Medical History Healthy male adult Social History Smoking Status: Current every day smoker Smoking Status: Current every day smoker tobacco type: cigarettes alcohol intake frequency: a few times a week Substance Use Type: marijuana Exam Initial Vital Signs Initial Vital Signs: Vital Signs Pulse Rate 120 H 04/08/24 23:12 Blood Pressure 128/89 04/08/24 23:12 Pulse Oximetry 98 04/08/24 23:12 HENMT Head: normal to inspection Ears: TM's normal bilaterally Nose: external nose normal Mouth: moist mucous membranes Throat: uvula midline, no peritonsillar masses, posterior oropharynx abnormal erythema and exudates and uvula not displaced Resp Effort & Inspection: normal respiratory effort Course Orders Ordered: ED Orders 04/08/24 23:19 Strep Grp A by PCR Rapid Stat 04/08/24 23:22 Covid-19 + FLU A/B + RSV - PCR Stat Discontinued Medications Benzocaine (Benzocaine/Menthol 1 Rylan Pkt) 1 each PO NOW ONE Stop: 04/09/24 00:27 Last Admin: 04/09/24 00:35 Dose: 1 each Documented By: MARU Dexamethasone (Dexamethasone 4 Mg Tablet) 16 mg PO NOW ONE Stop: 04/09/24 00:27 Last Admin: 04/09/24 00:35 Dose: 16 mg Documented By: MARU Penicillin G Benzathine (Penicillin G Benzathine 1,200,000 Unit/2 Ml Syringe) 1,200,000 unit IM NOW ONE Stop: 04/09/24 00:27 Last Admin: 04/09/24 00:33 Dose: 1,200,000 unit Documented By: MARU Vital Signs Vital signs: Vital Signs - 8 hr 04/08/24 23:12 04/08/24 23:12 04/08/24 23:16 Temperature 100.7 F H Pulse Rate 120 H 107 H Respiratory Rate 18 Blood Pressure 128/89 128/89 Pulse Oximetry 98 98 Oxygen Delivery Method Room Air 04/08/24 23:30 04/08/24 23:30 04/09/24 00:00 Temperature Pulse Rate 111 H Respiratory Rate 18 Blood Pressure 138/85 139/77 Pulse Oximetry 95 Oxygen Delivery Method 04/09/24 00:00 Temperature Pulse Rate 121 H Respiratory Rate Blood Pressure Pulse Oximetry 98 Oxygen Delivery Method Medical Decision Making Lab Data Labs: Lab Results 04/08/24 04/08/24 Range/Units 23:19 23:22 SARS-CoV-2 (PCR) Negative (Negative) Influenza A (RT-PCR) Flu a negative (NEGATIVE) Influenza B (RT-PCR) Flu b negative (NEGATIVE) RSV (PCR) Negative (Negative) Group A Strep (PCR) Positive H (Negative) MDM Narrative Medical decision making narrative: rapid strep is positive. His physical exam is consistent with strep pharyngitis. His physical exam today is not consistent with a peritonsillar/retropharyngeal abscess. He does seem to somewhat of a prominent erythema on the right posterior oropharynx but his uvula is midline. Rest of his HEENT exam is unremarkable. Patient was given a shot of Bicillin. We discussed topical treatments that he can try at home for the sore throat. He was given a dose of steroids. Discussed return precautions and follow-up instructions. He expressed understanding and agreement with plan. Discharge Plan Departure Patient Disposition: Home Clinical Impression: Strep pharyngitis Instructions: DI for Strep Throat Activity Restrictions/Additional Instructions: It is important that you try to increase the amount of fluids that you were drinking. You can try [id number] Cepacol drops and Chloraseptic sprays To help with the sore throat. You should see some improvement over the next 48 hours. Return to the emergency department for worsening symptoms. Prescriptions: No Action hydrocodone-acetaminophen 5-325 mg tablet 1 tab PO Q6H PRN (Reason: pain) Qty: 10 0RF ketorolac 10 mg tablet 10 mg PO Q6H PRN (Reason: pain) Qty: 14 0RF amoxicillin-pot clavulanate 875-125 mg tablet 1 tab PO Q12H Qty: 20 0RF ondansetron 4 mg tablet,disintegrating 4 mg PO TID-QID PRN (Reason: nausea and vomiting) Qty: 10 0RF Referrals: Miscellaneous,Doctor, MD [Primary Care Provider] - Stand Alone Forms: Patient Portal/API/Survey
[2024-04-09] MEDS: PENICILLIN G BENZATHINE 1,200,000 UNIT/2 ML SYRINGE 1200000 UNIT IM (00:33)
[2024-04-09] MEDS: BENZOCAINE/MENTHOL 1 LOZ PKT 1 EACH PO (00:35)
[2024-04-09] MEDS: dexAMETHasone 4 MG TABLET 16 MG PO (00:35)
== END 2024-04-09 00:51 | disposition home or self-care (01) ==
PROVIDERS: Emergency Provider Emergency Medicine
DX: J02.0 Streptococcal pharyngitis (principal); F17.200 Nicotine dependence, unspecified, uncomplicated
CPT/HCPCS: 0241U; 87651; 96372; 99283; 99284; J0561